=== PATIENT | male | born 1965 | race Hispanic/Latino ===

== ENCOUNTER 2019-01-06 07:44 | Observation (INO) | payer OTHER ==
[2019-01-06 08:10] LABS: #Eosinphils 0.2 thou/uL (0.0-0.7); #Lymphocytes 1.2 thou/uL (1.20-3.40); #Monocytes 0.7 thou/uL (0.11-0.59); #Neutrophils 14.6 thou/uL (1.40-6.50); %Basophils 0.3 % (0.0-1.0); %Eosinophils 0.9 % (0.0-10.0); %Monocytes 4.2 % (0.0-10.0); %Neutrophils 87.5 % (42.0-75.0); Hemoglobin 15.2 g/dL (14.0-18.0); Mean Corpuscular HGB CONC 34.5 g/dL (32.0-36.0); Mean Corpuscular Hemoglobin 31.3 pg (27.0-31.0); Mean Corpuscular Volume 90.6 fL (78.0-98.0); Mean Platelet Volume 7.8 fL (7.4-10.4); Platelet Count 215 thou/uL (130-400); RBC Distribution Width 11.4 % (11.5-14.5); Red Blood Cell (RBC) Count 4.87 mill/uL (4.70-6.10); White Blood Cell (WBC) Count 16.7 thou/uL (4.8-10.8)
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
[2019-01-06 08:26] LABS: ALT (SGPT) 20 U/L (8-55); AST (SGOT) 23 U/L (5-34); Alkaline Phosphatase 59 U/L (40-150); Anion Gap 14 mmol/L (10-20); BUN (Urea Nitrogen) 13 mg/dL (8.4-25.7); Bilirubin, Total 0.4 mg/dL (0.2-1.2); Calc. Creatinine Clearance 0 mL/min (70-130); Calcium 8.7 mg/dL (7.8-10.44); Carbon Dioxide 22 mmol/L (22-29); Chloride 108 mmol/L (98-107); Estimated GFR-MDRD Greater than 90; Globulin 2.9 g/dL (2.4-3.5); Glucose 124 mg/dL (70-105); Lipase 33 U/L (8-78); Potassium 3.3 mmol/L (3.5-5.1); Protein, Total 6.9 g/dL (6.0-8.3); Sodium 141 mmol/L (136-145)
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
[2019-01-06] MEDS ORDERED: Ketorolac Tromethamine 30 MG/ML VIAL ONE (10:01)
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
[2019-01-06 10:10] LABS: Bilirubin Negative (Negative); Blood, Urine Negative (Negative); Clarity CLEAR (Clear); Glucose, Urine (Dipstick) Negative (Negative); Leukocyte Negative (Negative); Nitrite Negative (Negative); Protein, Urine (Dipstick) Negative (Neg-Trace); Urobilinogen 0.2 mg/dL (0.2-1.0); pH, Urine 7.5 (5.0-9.0)
[2019-01-06 10:11] LABS: Specific Gravity, Urine 1.051 (1.002-1.036)
[2019-01-06] MEDS ORDERED: Adacel (T-DAP) 0.5 ML SYRINGE ONE (10:36)
[2019-01-06] MEDS ORDERED: HYDROcodone/Acetaminophen 10/325 mg Tablet ONE (10:36)
[2019-01-06 10:56] LABS: Acetaminophen Less than 6.0 mcg/mL (10.0-30.0); Alcohol Less than 10 mg/dL (Less than 10); Salicylate Less than 8.0 mg/dL (15.0-30.0)
[2019-01-06] MEDS ORDERED: Lidocaine 1% (PF) 30 ML VIAL ONE (11:30)
[2019-01-06] MEDS ORDERED: Lidocaine 1% PF 5 ML VIAL ONE (11:31)
[2019-01-06] MEDS ORDERED: ISOVUE-370 76%-LOCM 1 ML ONE (11:42)
[2019-01-06 12:30] LABS: Lactic Acid 1.9 mmol/L (0.5-2.2)
--- NOTE | 2019-01-06 13:23 | RAD ---
3 VIEWS SKULL: Date: 01/06/19 PROVIDED CLINICAL HISTORY: Foreign body. FINDINGS: No radiographically apparent foreign body is seen in the visualized soft tissues of the scalp. IMPRESSION: As above. POS: OFF
--- NOTE | 2019-01-06 13:44 | PDOC.EVN ---
Event Note - Event Note Event Note: Foreign body Removal Procedure Note PRE-OP DIAGNOSIS: foreign body L temporal region POST-OP DIAGNOSIS: Removal of glass foreign body PROCEDURE: foreign body removal Performing Physician: Anita Merchant MD, Adria Nunez HEAT TREAT FURNACE OPERATOR, Donnie JACOBS PROCEDURE: Anesthesia: 4 ml 2% Lidocaine Procedure: Timeout procedure was performed prior to initiating procedure to be sure of right patient and right location. The area surrounding the skin lesion was prepared in the usual sterile manner and then was anesthetized. Foreign body was excised bluntly using small forceps. Five small pieces of glass were successfully removed. Hemostasis was assured. The patient tolerated the procedure well. Follow up XR showed no residual foreign body. Closure: one staple Followup: The patient tolerated the procedure well without complications.
[2019-01-06] MEDS ORDERED: Ondansetron PF 4 MG/2 ML Vial IVP PRN (14:18)
[2019-01-06] MEDS ORDERED: Promethazine HCl 25 MG/ML VIAL IM PRN ×2 (14:18)
[2019-01-06] MEDS ORDERED: Cyclobenzaprine 10 MG TAB PO PRN (14:18)
[2019-01-06] MEDS ORDERED: Dextrose 50% Abboject 50 ML SYRINGE SLOW IVP PRN (14:18)
[2019-01-06] MEDS ORDERED: hydrALAZINE 20 MG/ML VIAL SLOW IVP PRN (14:18)
[2019-01-06] MEDS ORDERED: Sodium Chloride 0.9% 1,000 ML IV SCH (14:18)
[2019-01-06] MEDS ORDERED: Dextrose 5% in Water 1,000 ML IV PRN (14:18)
[2019-01-06] MEDS ORDERED: Acetaminophen 500 MG TAB ONE (14:23)
[2019-01-06 16:48] VITALS: BMI 24.2
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
[2019-01-06] MEDS: Ibuprofen 800 MG TAB PO SCH ×2 (17:56→20:20)
[2019-01-06] MEDS: Acetaminophen 500 MG TAB PO SCH ×2 (17:56→20:20)
[2019-01-06] MEDS: Famotidine 20 MG TAB PO SCH (20:20)
[2019-01-06] MEDS: traMADol HCl 50 MG TAB PO PRN (20:20)
[2019-01-06] MEDS: Silver Sulfadiazine 1% Cream 50 GM JAR TOP SCH (20:33)
[2019-01-07] MEDS: Sodium Bicarbonate 150 MEQ in Dextrose 5% in Water 1,000 ML IV SCH ×2 (00:29→08:21)
[2019-01-07] MEDS: Acetaminophen 500 MG TAB PO SCH ×4 (04:08→20:06)
[2019-01-07] MEDS: Ibuprofen 800 MG TAB PO SCH ×3 (05:33→22:21)
[2019-01-07] MEDS: traMADol HCl 50 MG TAB PO PRN (05:34)
[2019-01-07 06:43] LABS: #Eosinphils 0.2 thou/uL (0.0-0.7); #Lymphocytes 1.6 thou/uL (1.20-3.40); #Monocytes 0.5 thou/uL (0.11-0.59); %Basophils 0.7 % (0.0-1.0); %Eosinophils 2.8 % (0.0-10.0); %Lymphocytes 30.1 % (21.0-51.0); %Monocytes 10.1 % (0.0-10.0); %Neutrophils 56.3 % (42.0-75.0); Hemoglobin 11.4 g/dL (14.0-18.0); Mean Corpuscular HGB CONC 32.2 g/dL (32.0-36.0); Mean Corpuscular Hemoglobin 29.9 pg (27.0-31.0); Mean Corpuscular Volume 92.9 fL (78.0-98.0); Mean Platelet Volume 7.8 fL (7.4-10.4); Platelet Count 180 thou/uL (130-400); RBC Distribution Width 11.6 % (11.5-14.5); Red Blood Cell (RBC) Count 3.82 mill/uL (4.70-6.10); White Blood Cell (WBC) Count 5.3 thou/uL (4.8-10.8)
[2019-01-07 06:58] LABS: Anion Gap 7 mmol/L (10-20); BUN (Urea Nitrogen) 9 mg/dL (8.4-25.7); CK (CPK) 3410 U/L (30-200); Calc. Creatinine Clearance 120 mL/min (70-130); Calcium 7.8 mg/dL (7.8-10.44); Carbon Dioxide 29 mmol/L (22-29); Chloride 107 mmol/L (98-107); Estimated GFR-MDRD Greater than 90; Glucose 107 mg/dL (70-105); Potassium 3.3 mmol/L (3.5-5.1); Sodium 140 mmol/L (136-145)
[2019-01-07 07:45] LABS: Magnesium 1.8 mg/dL (1.6-2.6); Phosphorus 2.8 mg/dL (2.3-4.7)
[2019-01-07] MEDS: Famotidine 20 MG TAB PO SCH ×2 (08:23→20:06)
[2019-01-07] MEDS ORDERED: Sodium Chloride 0.9% 1,000 ML IV SCH ×2 (08:45→17:45)
[2019-01-07] MEDS ORDERED: Magnesium 2 GM/50 ML 2 GM in Premix Bag 1 BAG IVPB SCH (09:00)
[2019-01-07] MEDS ORDERED: Potassium Phosphate 15 MMOL in Sodium Chloride 0.9% 250 ML 250 ML IVPB SCH (09:00)
[2019-01-07] MEDS: Silver Sulfadiazine 1% Cream 50 GM JAR TOP SCH ×2 (09:00→20:22)
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
[2019-01-07] MEDS ORDERED: Morphine 4 MG/ML VIAL SLOW IVP PRN (12:12)
[2019-01-07] MEDS: Sodium Chloride 0.9% 1,000 ML IV SCH ×3 (13:41→22:22)
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
[2019-01-07 17:13] LABS: Hemoglobin 12.4 g/dL (14.0-18.0); Mean Corpuscular HGB CONC 33.4 g/dL (32.0-36.0); Mean Corpuscular Hemoglobin 31.2 pg (27.0-31.0); Mean Corpuscular Volume 93.4 fL (78.0-98.0); Mean Platelet Volume 7.4 fL (7.4-10.4); Platelet Count 196 thou/uL (130-400); RBC Distribution Width 11.5 % (11.5-14.5); Red Blood Cell (RBC) Count 3.97 mill/uL (4.70-6.10); White Blood Cell (WBC) Count 7.1 thou/uL (4.8-10.8)
[2019-01-07 17:29] LABS: Lactic Acid 1.7 mmol/L (0.5-2.2)
[2019-01-07] MEDS: Enoxaparin Sodium 30 MG/0.3 ML SYRINGE SC SCH (20:06)
[2019-01-08] MEDS: Sodium Chloride 0.9% 1,000 ML IV SCH ×4 (01:56→23:32)
[2019-01-08] MEDS: Acetaminophen 500 MG TAB PO SCH ×4 (03:05→20:26)
[2019-01-08 05:39] LABS: #Eosinphils 0.5 thou/uL (0.0-0.7); #Lymphocytes 1.6 thou/uL (1.20-3.40); #Monocytes 0.6 thou/uL (0.11-0.59); #Neutrophils 3.8 thou/uL (1.40-6.50); %Basophils 0.7 % (0.0-1.0); %Eosinophils 7.7 % (0.0-10.0); %Lymphocytes 24.2 % (21.0-51.0); %Monocytes 8.7 % (0.0-10.0); %Neutrophils 58.8 % (42.0-75.0); Hemoglobin 12.4 g/dL (14.0-18.0); Mean Corpuscular HGB CONC 33.3 g/dL (32.0-36.0); Mean Corpuscular Hemoglobin 31.1 pg (27.0-31.0); Mean Corpuscular Volume 93.2 fL (78.0-98.0); Mean Platelet Volume 8.2 fL (7.4-10.4); Platelet Count 185 thou/uL (130-400); RBC Distribution Width 11.6 % (11.5-14.5); Red Blood Cell (RBC) Count 3.98 mill/uL (4.70-6.10); White Blood Cell (WBC) Count 6.5 thou/uL (4.8-10.8)
[2019-01-08] MEDS: Ibuprofen 800 MG TAB PO SCH ×3 (05:59→22:26)
[2019-01-08 06:03] LABS: Anion Gap 10 mmol/L (10-20); BUN (Urea Nitrogen) 7 mg/dL (8.4-25.7); CK (CPK) 3458 U/L (30-200); Calc. Creatinine Clearance 122 mL/min (70-130); Calcium 8.3 mg/dL (7.8-10.44); Carbon Dioxide 27 mmol/L (22-29); Chloride 109 mmol/L (98-107); Estimated GFR-MDRD Greater than 90; Glucose 99 mg/dL (70-105); Magnesium 2.2 mg/dL (1.6-2.6); Phosphorus 2.8 mg/dL (2.3-4.7); Potassium 3.7 mmol/L (3.5-5.1); Sodium 142 mmol/L (136-145)
[2019-01-08] MEDS: traMADol HCl 50 MG TAB PO PRN ×2 (07:28→11:42)
[2019-01-08] MEDS: Famotidine 20 MG TAB PO SCH ×2 (10:25→20:26)
[2019-01-08] MEDS: Enoxaparin Sodium 30 MG/0.3 ML SYRINGE SC SCH ×2 (10:25→20:27)
[2019-01-08] MEDS: Silver Sulfadiazine 1% Cream 50 GM JAR TOP SCH ×2 (10:31→20:27)
[2019-01-08] MEDS ORDERED: traMADol HCl 50 MG TAB PO SCH (11:00)
[2019-01-08] MEDS: traMADol HCl 50 MG TAB PO SCH ×3 (11:41→22:36)
[2019-01-08] MEDS: Gabapentin 300 MG CAP PO SCH ×2 (15:13→20:27)
--- NOTE | 2019-01-08 19:39 | EKG ---
Test Reason : Blood Pressure : / mmHG Vent. Rate : 099 BPM Atrial Rate : 099 BPM P-R Int : 156 ms QRS Dur : 084 ms QT Int : 354 ms P-R-T Axes : 036 -48 012 degrees QTc Int : 454 ms Normal sinus rhythm Pulmonary disease pattern Left anterior fascicular block Abnormal ECG Confirmed by MAURIZIO BREWER DO ([id number]), video editor MINERVA BLANCA ([id number] on 01/08/2019 7:37:31 PM Referred By: Confirmed By:MAURIZIO BREWER DO
[2019-01-08] MEDS: Senokot S 8.6-50 MG TAB PO SCH (20:26)
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
[2019-01-09] MEDS: Acetaminophen 500 MG TAB PO SCH ×4 (03:15→21:15)
[2019-01-09] MEDS: traMADol HCl 50 MG TAB PO SCH ×4 (06:06→23:30)
[2019-01-09] MEDS: Sodium Chloride 0.9% 1,000 ML IV SCH (06:07)
[2019-01-09] MEDS: Ibuprofen 800 MG TAB PO SCH ×3 (06:08→21:20)
[2019-01-09] MEDS: Gabapentin 300 MG CAP PO SCH ×3 (09:04→21:14)
[2019-01-09] MEDS: Polyethylene Glycol 3350 17 GM Packet PO SCH (09:04)
[2019-01-09] MEDS: Senokot S 8.6-50 MG TAB PO SCH ×2 (09:04→21:15)
[2019-01-09] MEDS: Famotidine 20 MG TAB PO SCH ×2 (09:04→21:27)
[2019-01-09] MEDS: Enoxaparin Sodium 30 MG/0.3 ML SYRINGE SC SCH ×2 (09:05→21:20)
[2019-01-09] MEDS: Silver Sulfadiazine 1% Cream 50 GM JAR TOP SCH ×2 (09:07→21:20)
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
[2019-01-09] MEDS: Ondansetron ODT 4 MG TAB PO PRN (17:08)
[2019-01-10] MEDS: Acetaminophen 500 MG TAB PO SCH ×4 (03:15→19:57)
[2019-01-10] MEDS: traMADol HCl 50 MG TAB PO SCH ×5 (05:40→22:03)
[2019-01-10] MEDS: Ibuprofen 800 MG TAB PO SCH ×3 (05:55→19:58)
[2019-01-10] MEDS: Enoxaparin Sodium 30 MG/0.3 ML SYRINGE SC SCH ×2 (08:52→20:01)
[2019-01-10] MEDS: Polyethylene Glycol 3350 17 GM Packet PO SCH (08:53)
[2019-01-10] MEDS: Famotidine 20 MG TAB PO SCH (08:53)
[2019-01-10] MEDS: Gabapentin 300 MG CAP PO SCH ×3 (08:53→19:58)
[2019-01-10] MEDS: Silver Sulfadiazine 1% Cream 50 GM JAR TOP SCH ×2 (08:54→20:01)
[2019-01-10] MEDS: Senokot S 8.6-50 MG TAB PO SCH ×2 (08:54→20:01)
[2019-01-10] MEDS ORDERED: Bisacodyl 10 MG SUPP PR SCH (09:00)
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
[2019-01-11] MEDS: Acetaminophen 500 MG TAB PO SCH ×4 (02:36→21:23)
[2019-01-11] MEDS: traMADol HCl 50 MG TAB PO SCH ×4 (05:27→23:46)
[2019-01-11] MEDS: Ibuprofen 800 MG TAB PO SCH ×3 (05:27→21:25)
[2019-01-11] MEDS: Enoxaparin Sodium 30 MG/0.3 ML SYRINGE SC SCH ×2 (08:32→21:24)
[2019-01-11] MEDS: Senokot S 8.6-50 MG TAB PO SCH ×2 (08:32→21:24)
[2019-01-11] MEDS: Polyethylene Glycol 3350 17 GM Packet PO SCH (08:32)
[2019-01-11] MEDS: Gabapentin 300 MG CAP PO SCH ×3 (08:33→21:25)
[2019-01-11] MEDS: Silver Sulfadiazine 1% Cream 50 GM JAR TOP SCH ×2 (08:33→21:25)
[2019-01-11] MEDS: Ondansetron ODT 4 MG TAB PO PRN (11:00)
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
[2019-01-12] MEDS: Acetaminophen 500 MG TAB PO SCH ×4 (03:16→20:40)
[2019-01-12] MEDS: traMADol HCl 50 MG TAB PO SCH ×3 (06:28→17:44)
[2019-01-12] MEDS: Ibuprofen 800 MG TAB PO SCH ×3 (06:28→22:18)
[2019-01-12] MEDS: Polyethylene Glycol 3350 17 GM Packet PO SCH (08:51)
[2019-01-12] MEDS: Gabapentin 300 MG CAP PO SCH ×3 (08:51→20:39)
[2019-01-12] MEDS: Enoxaparin Sodium 30 MG/0.3 ML SYRINGE SC SCH ×2 (08:51→20:39)
[2019-01-12] MEDS: Silver Sulfadiazine 1% Cream 50 GM JAR TOP SCH ×2 (08:51→20:40)
[2019-01-12] MEDS: Senokot S 8.6-50 MG TAB PO SCH ×2 (08:51→20:39)
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
[2019-01-12] MEDS: Ondansetron ODT 4 MG TAB PO PRN (11:41)
[2019-01-13] MEDS: traMADol HCl 50 MG TAB PO SCH ×5 (00:05→23:07)
[2019-01-13] MEDS: Acetaminophen 500 MG TAB PO SCH ×4 (04:05→20:44)
[2019-01-13] MEDS: Ibuprofen 800 MG TAB PO SCH ×3 (05:46→23:07)
[2019-01-13] MEDS: Polyethylene Glycol 3350 17 GM Packet PO SCH (08:30)
[2019-01-13] MEDS: Gabapentin 300 MG CAP PO SCH ×3 (08:30→20:45)
[2019-01-13] MEDS: Senokot S 8.6-50 MG TAB PO SCH ×2 (08:30→20:45)
[2019-01-13] MEDS: Enoxaparin Sodium 30 MG/0.3 ML SYRINGE SC SCH ×2 (08:30→20:44)
[2019-01-13] MEDS: Silver Sulfadiazine 1% Cream 50 GM JAR TOP SCH ×2 (08:30→20:51)
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
[2019-01-14] MEDS: Acetaminophen 500 MG TAB PO SCH ×3 (03:14→15:10)
[2019-01-14] MEDS: traMADol HCl 50 MG TAB PO SCH ×3 (05:38→18:02)
[2019-01-14] MEDS: Ibuprofen 800 MG TAB PO SCH ×2 (05:38→15:10)
[2019-01-14] MEDS: Senokot S 8.6-50 MG TAB PO SCH (08:36)
[2019-01-14] MEDS: Enoxaparin Sodium 30 MG/0.3 ML SYRINGE SC SCH (08:36)
[2019-01-14] MEDS: Polyethylene Glycol 3350 17 GM Packet PO SCH (08:36)
[2019-01-14] MEDS: Gabapentin 300 MG CAP PO SCH ×2 (08:36→15:10)
[2019-01-14] MEDS: Silver Sulfadiazine 1% Cream 50 GM JAR TOP SCH (08:36)
[2019-01-14 11:42] VITALS: TEMP 98.5
[2019-01-14 15:28] VITALS: BP 122/76
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
== END 2019-01-14 18:45 | disposition home or self-care (01) ==
LOC: ERS 07:44 → SJJU 16:36
PROVIDERS: ADMIT Surgery; ATTEND Surgery
DX: T79.6XXA Traumatic ischemia of muscle, initial encounter (principal); G89.11 Acute pain due to trauma; R20.2 Paresthesia of skin; M48.061 Spinal stenosis, lumbar region without neurogenic claudication; V69.9XXA Occupant (driver) (passenger) of heavy transport vehicle injured in unspecified traffic accident, initial encounter
CPT/HCPCS: 36415; 70250; 70450; 71045; 71260; 72125; 72146; 72148; 72170; 74177; 80048; 80053; 80307; 81003; 82550; 83605; 83690; 83735; 84100; 85025; 86850; 86900; 86901; 90471; 90715; 93005; 96361; 96365; 96366; 96367; 96372; 96374; 96375; G0378; G0390; J1650; J1885; J2001; J2270; J3475; J7050; J7070; Q0162; Q9966

== ENCOUNTER 2019-01-19 13:04 | Emergency (ER) | payer SELFPAY | END 2019-01-19 16:09 | disposition home or self-care (01) | LOC: ERS 13:04 | DX: S80.212A Abrasion, left knee, initial encounter (principal); S80.211A Abrasion, right knee, initial encounter; R26.2 Difficulty in walking, not elsewhere classified; Z79.891 Long term (current) use of opiate analgesic; Z79.899 Other long term (current) drug therapy; V89.2XXA Person injured in unspecified motor-vehicle accident, traffic, initial encounter | CPT/HCPCS: 99283 ==

== ENCOUNTER 2020-03-02 10:01 | Emergency (ER) | payer BC, OTHER ==
[2020-03-02] MEDS ORDERED: Morphine 4 MG/ML VIAL ONE (10:28)
[2020-03-02] MEDS ORDERED: Ondansetron PF 4 MG/2 ML Vial ONE (10:28)
[2020-03-02] MEDS ORDERED: Ketorolac Tromethamine 30 MG/ML VIAL ONE (10:57)
--- NOTE | 2020-03-02 11:35 | CT ---
CT ABDOMEN AND PELVIS: Date: 03/02/2020 PROVIDED CLINICAL HISTORY: Right flank pain. FINDINGS: The visualized lung bases are free of significant opacity. There is a 3.0 mm distal right ureteral calculus with associated mild right hydronephrosis. No additi onal urinary tract calculi are evident. No evidence for left-sided hydronephrosis. The solid abdominal organs are suboptimally evaluated on the absence of IV contrast material but demo nstrate an otherwise unremarkable unenhanced CT appearance. There is no bowel dilatation, inflammatory fat stranding, free fluid, or free air apparent. Vascular calcifications are seen. The osseous structures demonstrate no concerning lytic or blastic lesions. IMPRESSION: 3.0 mm mildly obstructing distal right ureteral calculus. POS: [facility]
[2020-03-02 13:17] LABS: Bacteria/HPF None Seen HPF (None Seen); Bilirubin Negative (Negative); Blood, Urine Negative (Negative); Clarity Clear (Clear); Glucose, Urine (Dipstick) Normal (Negative); Ketone, Urine Negative (Negative); Leukocyte 75 Leu/uL (Negative); Nitrite Negative (Negative); Protein, Urine (Dipstick) 20 mg/dL (Neg-Trace); Specific Gravity, Urine 1.025 (1.002-1.036); Squamous Epithelial None Seen HPF (0-3); Urobilinogen Normal mg/dL (Less than 2)
== END 2020-03-02 14:00 | disposition home or self-care (01) ==
LOC: ERS 10:01
DX: N13.2 Hydronephrosis with renal and ureteral calculous obstruction (principal); R11.0 Nausea
CPT/HCPCS: 74176; 81003; 81015; 87086; 96361; 96374; 96375; J1885; J2270; J2405

== ENCOUNTER 2020-03-05 10:19 | Emergency (ER) | payer BC | END 2020-03-05 11:20 | disposition home or self-care (01) | LOC: ERS 10:19 | DX: K59.00 Constipation, unspecified (principal) | CPT/HCPCS: 99283 ==